=== PATIENT | female | born 1970 | race Caucasian/White ===

== ENCOUNTER → 2016-08-25 | Outpatient (CLI) | payer OTHER | LOC: LAB 06:46 | DX: Z00.00 Encounter for general adult medical examination without abnormal findings (principal); I10 Essential (primary) hypertension ==

== ENCOUNTER → 2021-02-26 | Outpatient (CLI) | payer BC ==
[2021-02-26 12:34] LABS: ALBUMIN 4.1 g/dL (3.5-5.0)
[2021-02-26 12:35] LABS: POTASSIUM 4.3 mmol/L (3.5-5.1)
[2021-02-26 12:36] LABS: CALCIUM 9.3 mg/dL (8.3-10.5)
[2021-02-26 12:37] LABS: TOTAL PROTEIN 6.5 g/dL (6.4-8.3)
[2021-02-26 12:39] LABS: TOTAL BILIRUBIN 0.6 mg/dL (0.2-1.2)
[2021-02-26 13:01] LABS: D-DIMER 0.41 mg/L FEU (0.15-0.50)
[2021-02-26 13:43] LABS: BASO # 0.04 (0.02-0.10); EOS # 0.21 (0.04-0.40); EOS % 2.6 % (1.0-5.0); HEMATOCRIT 38.8 % (37.0-47.0); HEMOGLOBIN 12.6 g/dL (12.5-16.0); LYMPH# 2.66 (1.50-4.00); MEAN CELL VOLUME 99 fl (78-100); MEAN CORPUSCULAR HEMOGLOBIN 32 pg (27-31); MEAN CORPUSCULAR HGB CONC 33 g/dL (33-37); MEAN PLATELET VOLUME 10.8 fl (7.4-10.4); MONO # 0.58 (0.20-0.80); NEU # 4.73 (1.40-6.50); PLATELET COUNT 192 K/mm3 (130-400); RED BLOOD COUNT 3.94 M/mm3 (4.10-5.30); RED CELL DISTRIBUTION WIDTH 14.2 % (11.5-14.5); WHITE BLOOD COUNT 8.2 K/mm3 (4.8-10.8)
== END ==
LOC: LAB 12:10
PROVIDERS: Nurse Practitioner
DX: R22.42 Localized swelling, mass and lump, left lower limb (principal)

== ENCOUNTER → 2024-03-24 | Outpatient (CLI) | payer BC | LOC: RAD 11:12 | DX: M25.511 Pain in right shoulder (principal) ==

== ENCOUNTER → 2024-04-01 | Outpatient (CLI) | payer BC ==
[2024-04-01 07:56] LABS: BASO # 0.02 K/mm3 (0.02-0.10); EOS # 0.11 K/mm3 (0.04-0.40); EOS % 1.5 % (1.0-5.0); HEMATOCRIT 40.5 % (37.0-47.0); HEMOGLOBIN 13.3 g/dL (12.5-16.0); LYMPH# 2.36 K/mm3 (1.50-4.00); MEAN CELL VOLUME 96 fl (78-100); MEAN CORPUSCULAR HEMOGLOBIN 32 pg (27-31); MEAN CORPUSCULAR HGB CONC 33 g/dL (33-37); MEAN PLATELET VOLUME 9.9 fl (7.4-10.4); MONO # 0.55 K/mm3 (0.20-0.80); NEU # 4.47 K/mm3 (1.40-6.50); PLATELET COUNT 191 K/mm3 (130-400); RED CELL DISTRIBUTION WIDTH 12.8 % (11.5-14.5); WHITE BLOOD COUNT 7.5 K/mm3 (4.8-10.8)
[2024-04-01 08:04] LABS: CALCIUM 9.1 mg/dL (8.3-10.5)
[2024-04-01 08:05] LABS: TOTAL PROTEIN 6.3 g/dL (6.4-8.3)
[2024-04-01 08:10] LABS: TOTAL BILIRUBIN 0.5 mg/dL (0.2-1.2)
[2024-04-01 08:19] LABS: PARTIAL THROMBOPLASTIN TIME 25.3 SECONDS (21.0-32.0); PROTHROMBIN TIME 9.4 SECONDS (9.0-12.0)
[2024-04-01 22:50] LABS: LUTENIZING HORMONE 27.2 mIU/mL (()); PROGESTERONE 0.2 ng/mL (())
== END ==
LOC: LAB 07:36
PROVIDERS: Physician Assistant
DX: Z13.1 Encounter for screening for diabetes mellitus (principal); Z13.220 Encounter for screening for lipoid disorders; Z13.29 Encounter for screening for other suspected endocrine disorder; E89.41 Symptomatic postprocedural ovarian failure; K90.9 Intestinal malabsorption, unspecified; R58 Hemorrhage, not elsewhere classified

== ENCOUNTER → 2024-04-06 | Outpatient (CLI) | payer BC | LOC: MAMMO 09:22 → RAD 09:22 | DX: Z12.31 Encounter for screening mammogram for malignant neoplasm of breast (principal) ==

== ENCOUNTER → 2024-05-31 | Outpatient (REF) | payer OTHER | LOC: LAB 14:08 | DX: Z01.89 Encounter for other specified special examinations (principal) ==

== ENCOUNTER → 2024-09-30 | Outpatient (CLI) | payer BC | LOC: RAD 09:21 | DX: R22.2 Localized swelling, mass and lump, trunk (principal) ==